=== PATIENT | male | born 1985 | race Hispanic/Latino ===

== ENCOUNTER 2019-06-02 15:06 | Emergency (ER) | payer MEDICAID, SELFPAY ==
[2019-06-02] MEDS ORDERED: Ketorolac Tromethamine 30 MG/ML VIAL ONE (15:59)
--- NOTE | 2019-06-02 16:30 | RAD ---
Left elbow 4 views HISTORY: Injury. FINDINGS: Lateral view demonstrates fluid distention of the joint capsule, as evidenced by elevation of the distal humeral fat pads. Radiocapitellar alignment is maintained. Radial head fracture not visible. No dislocation. IMPRESSION: Joint fluid may be related to an effusion or possibly hemarthrosis from acute injury. Giv en recent trauma, please consider immobilization and short-term radiographic follow-up. Fracture not visualized.
== END 2019-06-02 17:26 | disposition home or self-care (01) ==
LOC: ERS 15:06
DX: M25.522 Pain in left elbow (principal); X50.3XXA Overexertion from repetitive movements, initial encounter; Y99.0 Civilian activity done for income or pay
CPT/HCPCS: 29105; 96372; J1885

== ENCOUNTER 2023-01-12 02:09 | Emergency (ER) | payer SELFPAY ==
[2023-01-12 02:50] LABS: #Monocytes 0.3 thou/uL (0.11-0.59); #Neutrophils 2.3 thou/uL (1.40-6.50); %Lymphocytes 31.5 % (21.0-51.0); %Neutrophils 58.2 % (42.0-75.0); Hematocrit 41.7 % (42.0-52.0); Hemoglobin 13.7 g/dL (14.0-18.0); Mean Corpuscular HGB CONC 32.9 g/dL (32.0-36.0); Mean Corpuscular Hemoglobin 29.1 pg (27.0-31.0); Mean Corpuscular Volume 88.5 fl (78.0-98.0); Mean Platelet Volume 9.8 fL (7.4-10.4); Platelet Count 105 10x3/uL (130-400); RBC Distribution Width 12.5 % (11.5-14.5); Red Blood Cell (RBC) Count 4.71 mill/uL (4.70-6.10); White Blood Cell (WBC) Count 3.9 10x3/uL (4.8-10.8)
[2023-01-12 03:15] LABS: Troponin I Less than 0.010 ng/mL (< 0.028)
[2023-01-12 03:19] LABS: ALT (SGPT) 34 U/L (8-55); AST (SGOT) 73 U/L (5-34); Albumin 3.9 g/dL (3.5-5.0); Alkaline Phosphatase 149 U/L (40-110); Anion Gap 13 mmol/L (10-20); BUN (Urea Nitrogen) 6 mg/dL (8.9-20.6); Bilirubin, Total 2.6 mg/dL (0.2-1.2); Calc. Creatinine Clearance 0 mL/min (70-130); Calcium 9.3 mg/dL (7.8-10.44); Carbon Dioxide 27 mmol/L (22-29); Chloride 100 mmol/L (98-107); Estimated GFR 116; Globulin 3.7 g/dL (2.4-3.5); Glucose 101 mg/dL (70-105); Potassium 3.9 mmol/L (3.5-5.1); Protein, Total 7.6 g/dL (6.0-8.3); Sodium 136 mmol/L (136-145)
[2023-01-12] MEDS ORDERED: Acetaminophen 500 MG TAB ONE (03:35)
== END 2023-01-12 03:40 | disposition home or self-care (01) ==
LOC: ERS 02:09
DX: R07.9 Chest pain, unspecified (principal); H65.192 Other acute nonsuppurative otitis media, left ear; H73.92 Unspecified disorder of tympanic membrane, left ear
CPT/HCPCS: 36415; 71045; 80053; 84484; 85025; 93005

== ENCOUNTER 2023-05-31 04:29 | Emergency (ER) | payer SELFPAY ==
[2023-05-31] MEDS ORDERED: Ondansetron ODT 4 MG TAB ONE (04:45)
[2023-05-31] MEDS ORDERED: Ondansetron PF 4 MG/2 ML Vial ONE (05:50)
[2023-05-31 05:53] LABS: #Basophils 0.1 thou/uL (0.0-0.2); #Monocytes 0.3 thou/uL (0.11-0.59); #Neutrophils 2.2 thou/uL (1.40-6.50); %Basophils 1.9 % (0.0-1.0); %Eosinophils 0.8 % (0.0-10.0); %Lymphocytes 31.1 % (21.0-51.0); %Neutrophils 57.9 % (42.0-75.0); Hematocrit 43.8 % (42.0-52.0); Hemoglobin 14.4 g/dL (14.0-18.0); Mean Corpuscular HGB CONC 32.9 g/dL (32.0-36.0); Mean Corpuscular Hemoglobin 28.2 pg (27.0-31.0); Mean Corpuscular Volume 85.9 fl (78.0-98.0); Mean Platelet Volume 11.5 fL (7.4-10.4); RBC Distribution Width 12.8 % (11.5-14.5); White Blood Cell (WBC) Count 3.7 10x3/uL (4.8-10.8)
[2023-05-31 05:54] LABS: Platelet Count 78 10x3/uL (130-400)
[2023-05-31 06:15] LABS: ALT (SGPT) 52 U/L (8-55); AST (SGOT) 139 U/L (5-34); Albumin 4.1 g/dL (3.5-5.0); Alkaline Phosphatase 144 U/L (40-110); Anion Gap 15 mmol/L (10-20); BUN (Urea Nitrogen) 4 mg/dL (8.9-20.6); Bilirubin, Total 3.1 mg/dL (0.2-1.2); Calc. Creatinine Clearance 0 mL/min (70-130); Calcium 9.2 mg/dL (7.8-10.44); Carbon Dioxide 28 mmol/L (22-29); Chloride 98 mmol/L (98-107); Estimated GFR 114; Glucose 112 mg/dL (70-105); Magnesium 1.9 mg/dL (1.6-2.6); Potassium 3.2 mmol/L (3.5-5.1); Protein, Total 8.1 g/dL (6.0-8.3); Sodium 138 mmol/L (136-145)
[2023-05-31] MEDS ORDERED: Potassium Chloride 20 MEQ TAB ONE (07:12)
== END 2023-05-31 07:18 | disposition home or self-care (01) ==
LOC: ERS 04:29
DX: F10.129 Alcohol abuse with intoxication, unspecified (principal); E87.6 Hypokalemia; R74.8 Abnormal levels of other serum enzymes; R00.2 Palpitations
CPT/HCPCS: 80053; 83735; 84484; 85025; 93005; 96361; 96374; J2405; Q0162

== ENCOUNTER 2024-02-15 17:49 | Emergency (ER) | payer SELFPAY ==
[2024-02-15 18:37] LABS: #Basophils 0.07 10x3/uL (0.0-0.2); #Eosinophils Less than 0.03 10x3/uL (0.0-0.7); %Basophils 1.4 % (0.0-1.0); %Eosinophils 0.4 % (0.0-10.0); %Lymphocytes 21.9 % (21.0-51.0); %Monocytes 9.1 % (0.0-10.0); Hematocrit 37.7 % (42.0-52.0); Mean Corpuscular HGB CONC 31.8 g/dL (32.0-36.0); Mean Corpuscular Hemoglobin 24.1 pg (27.0-31.0); Mean Corpuscular Volume 75.7 fL (78.0-98.0); Mean Platelet Volume 10.4 fL (7.4-10.4); Platelet Count 72 10x3/uL (130-400); RBC Distribution Width 20.1 % (11.5-14.5); Red Blood Cell (RBC) Count 4.98 mill/uL (4.70-6.10)
[2024-02-15 18:56] LABS: ALT (SGPT) 42 U/L (8-55); AST (SGOT) 139 U/L (5-34); Albumin 3.2 g/dL (3.5-5.0); Alkaline Phosphatase 150 U/L (40-110); Anion Gap 15 mmol/L (10-20); BUN (Urea Nitrogen) 5 mg/dL (8.9-20.6); Bilirubin, Total 3.1 mg/dL (0.2-1.2); Calc. Creatinine Clearance 0 mL/min (70-130); Calcium 8.3 mg/dL (7.8-10.44); Carbon Dioxide 25 mmol/L (22-29); Chloride 101 mmol/L (98-107); Estimated GFR 116; Globulin 4.6 g/dL (2.4-3.5); Glucose 110 mg/dL (70-105); Lipase 41 U/L (8-78); Potassium 3.4 mmol/L (3.5-5.1); Protein, Total 7.8 g/dL (6.0-8.3); Sodium 138 mmol/L (136-145)
[2024-02-15 19:02] LABS: Troponin I Less than 0.010 ng/mL (< 0.028)
[2024-02-15] MEDS ORDERED: Milk Of Magnesia 30 ML UDCUP ONE (19:11)
[2024-02-15] MEDS ORDERED: Ondansetron PF 4 MG/2 ML Vial ONE (19:11)
[2024-02-15] MEDS ORDERED: Pantoprazole 40 MG VIAL ONE (19:14)
== END 2024-02-15 19:39 | disposition home or self-care (01) ==
LOC: ERS 17:49
DX: L08.9 Local infection of the skin and subcutaneous tissue, unspecified (principal); K29.70 Gastritis, unspecified, without bleeding; W22.8XXA Striking against or struck by other objects, initial encounter; Y93.H2 Activity, gardening and landscaping; Y92.096 Garden or yard of other non-institutional residence as the place of occurrence of the external cause
CPT/HCPCS: 36415; 71045; 80053; 83690; 84484; 85025; 93005; 96374; 96375; J2405; J2470

== ENCOUNTER 2024-03-12 16:32 | Inpatient (IN) | payer SELFPAY ==
[2024-03-12 18:17] VITALS: BMI 28.3
[2024-03-12] MEDS ORDERED: Ondansetron ODT 4 MG TAB PO PRN (19:08)
[2024-03-12] MEDS ORDERED: Electrolyte Replacement Protocol 1 EACH FS PRN (19:15)
[2024-03-12] MEDS: Acetaminophen 325 MG TAB PO PRN (19:47)
[2024-03-12] MEDS: Lorazepam 1 MG TAB PO PRN (19:47)
[2024-03-12] MEDS: Ondansetron PF 4 MG/2 ML Vial IVP PRN (19:47)
[2024-03-12] MEDS: Thiamine HCl 200 MG/2 ML VIAL SLOW IVP SCH (19:47)
[2024-03-12 19:48] LABS: #Basophils 0.03 10x3/uL (0.0-0.2); #Eosinophils Less than 0.03 10x3/uL (0.0-0.7); %Basophils 0.9 % (0.0-1.0); %Eosinophils 0.6 % (0.0-10.0); %Lymphocytes 33.5 % (21.0-51.0); %Monocytes 10.8 % (0.0-10.0); %Neutrophils 53.9 % (42.0-75.0); Hematocrit 27.5 % (42.0-52.0); Hemoglobin 9.1 g/dL (14.0-18.0); Mean Corpuscular HGB CONC 33.1 g/dL (32.0-36.0); Mean Corpuscular Hemoglobin 24.7 pg (27.0-31.0); Mean Corpuscular Volume 74.5 fL (78.0-98.0); Mean Platelet Volume 10.8 fL (7.4-10.4); Platelet Count 42 10x3/uL (130-400); RBC Distribution Width 18.6 % (11.5-14.5); Red Blood Cell (RBC) Count 3.69 mill/uL (4.70-6.10)
[2024-03-12 20:06] LABS: ALT (SGPT) 37 U/L (8-55); AST (SGOT) 135 U/L (5-34); Albumin 2.3 g/dL (3.5-5.0); Alkaline Phosphatase 128 U/L (40-110); Anion Gap 14 mmol/L (10-20); BUN (Urea Nitrogen) 12 mg/dL (8.9-20.6); Bilirubin, Total 4.2 mg/dL (0.2-1.2); Calc. Creatinine Clearance 163 mL/min (70-130); Calcium 7.6 mg/dL (7.8-10.44); Carbon Dioxide 28 mmol/L (22-29); Chloride 94 mmol/L (98-107); Estimated GFR 118; Globulin 3.4 g/dL (2.4-3.5); Glucose 99 mg/dL (70-105); Magnesium 1.5 mg/dL (1.6-2.6); Potassium 2.8 mmol/L (3.5-5.1); Protein, Total 5.7 g/dL (6.0-8.3); Sodium 133 mmol/L (136-145)
[2024-03-12] MEDS ORDERED: Potassium Chloride 20 MEQ TAB PO SCH (21:15)
[2024-03-12] MEDS: Potassium Chloride 20 MEQ in Premix 1 BAG IVPB SCH (21:17)
[2024-03-12] MEDS: Magnesium 2 GM/50 ML(in water) 2 GM in Premix 1 BAG IVPB SCH (21:20)
[2024-03-12] MEDS: Sodium Chloride 0.9% 1,000 ML IV SCH (21:20)
[2024-03-12] MEDS: Potassium Chloride 20 MEQ TAB PO SCH (21:23)
[2024-03-12 22:40] LABS: Amphetamine Not Detected (NotDetected); Barbiturates Screen Not Detected (NotDetected); Benzodiazepine Screen Detected (NotDetected); Cocaine Metabolite Screen Not Detected (NotDetected); Methadone Not Detected (NotDetected); Methamphetamine Not Detected (NotDetected); Opiate Screen Not Detected (NotDetected); Oxycodone Screen Not Detected (NotDetected); Phencyclidine (PCP) Not Detected (NotDetected); THC/Cannabinoid Screen Not Detected (NotDetected); Tricyclic Screen Not Detected (NotDetected)
[2024-03-13 04:39] LABS: INR-International Normal Ratio 1.3; Prothrombin Time 16.6 sec (12.0-14.7)
[2024-03-13 04:40] LABS: PTT 39.1 sec (22.9-36.1)
[2024-03-13 04:52] LABS: Anion Gap 10 mmol/L (10-20); BUN (Urea Nitrogen) 12 mg/dL (8.9-20.6); Calc. Creatinine Clearance 159 mL/min (70-130); Calcium 7.6 mg/dL (7.8-10.44); Carbon Dioxide 28 mmol/L (22-29); Chloride 98 mmol/L (98-107); Estimated GFR 117; Glucose 81 mg/dL (70-105); Iron 170 ug/dL (65-175); Iron Binding Capacity, Total 211 mcg/dL (261-462); Magnesium 2.2 mg/dL (1.6-2.6); Potassium 3.4 mmol/L (3.5-5.1); Sodium 133 mmol/L (136-145)
[2024-03-13 05:21] LABS: #Basophils 0.03 10x3/uL (0.0-0.2); #Eosinophils Less than 0.03 10x3/uL (0.0-0.7); %Eosinophils 0.6 % (0.0-10.0); %Lymphocytes 37.7 % (21.0-51.0); %Monocytes 9.7 % (0.0-10.0); %Neutrophils 50.4 % (42.0-75.0); Hematocrit 27.2 % (42.0-52.0); Hemoglobin 8.8 g/dL (14.0-18.0); Mean Corpuscular HGB CONC 32.4 g/dL (32.0-36.0); Mean Corpuscular Hemoglobin 24.1 pg (27.0-31.0); Mean Corpuscular Volume 74.5 fL (78.0-98.0); Mean Platelet Volume 10.7 fL (7.4-10.4); Platelet Count 43 10x3/uL (130-400); RBC Distribution Width 18.6 % (11.5-14.5); Red Blood Cell (RBC) Count 3.65 mill/uL (4.70-6.10)
[2024-03-13] MEDS: Potassium Chloride 20 MEQ TAB PO SCH (08:32)
[2024-03-13] MEDS: Multivit, Therapeutic 1 TAB PO SCH (08:32)
[2024-03-13] MEDS: Folic Acid 1 MG TAB PO SCH (08:32)
[2024-03-13] MEDS: Pantoprazole 40 MG VIAL IVP SCH (09:50)
[2024-03-13] MEDS: NS 0.9% w/ 20 MEQ KCL 1,000 ML/1,000 ML BAG IV SCH (09:50)
[2024-03-13] MEDS: cloNIDine 0.1mg/24 Hour PATCH TD SCH (09:50)
[2024-03-13] MEDS: Senokot S 8.6-50 MG TAB PO SCH ×2 (17:17→21:21)
[2024-03-13] MEDS: Polyethylene Glycol 3350 17 GM Packet PO PRN (17:17)
[2024-03-13] MEDS ORDERED: Lorazepam 1 MG TAB PO PRN (19:10)
[2024-03-13] MEDS: Lorazepam 2 MG/ML VIAL IM PRN (23:15)
[2024-03-14 05:30] LABS: #Basophils 0.06 10x3/uL (0.0-0.2); %Basophils 1.4 % (0.0-1.0); %Eosinophils 1.6 % (0.0-10.0); %Lymphocytes 34.6 % (21.0-51.0); %Monocytes 7.9 % (0.0-10.0); %Neutrophils 53.8 % (42.0-75.0); Hematocrit 26.9 % (42.0-52.0); Hemoglobin 8.7 g/dL (14.0-18.0); Mean Corpuscular HGB CONC 32.3 g/dL (32.0-36.0); Mean Corpuscular Hemoglobin 24.8 pg (27.0-31.0); Mean Corpuscular Volume 76.6 fL (78.0-98.0); Mean Platelet Volume 10.8 fL (7.4-10.4); Platelet Count 58 10x3/uL (130-400); RBC Distribution Width 18.9 % (11.5-14.5); Red Blood Cell (RBC) Count 3.51 mill/uL (4.70-6.10)
[2024-03-14 05:58] LABS: ALT (SGPT) 36 U/L (8-55); AST (SGOT) 129 U/L (5-34); Albumin 2.3 g/dL (3.5-5.0); Alkaline Phosphatase 130 U/L (40-110); Anion Gap 12 mmol/L (10-20); BUN (Urea Nitrogen) 11 mg/dL (8.9-20.6); Bilirubin, Total 5.4 mg/dL (0.2-1.2); Calc. Creatinine Clearance 114 mL/min (70-130); Carbon Dioxide 22 mmol/L (22-29); Chloride 103 mmol/L (98-107); Estimated GFR 91; Globulin 3.6 g/dL (2.4-3.5); Glucose 83 mg/dL (70-105); Protein, Total 5.9 g/dL (6.0-8.3); Sodium 133 mmol/L (136-145)
[2024-03-14] MEDS ORDERED: Electrolyte Replacement Protocol FS PRN (08:15)
[2024-03-14] MEDS: FLU (Fluarix Triv) TS24-25(6MOS UP)/PF 45 MCG/0.5 ML Syringe IM ONE (08:34)
[2024-03-14] MEDS: Lorazepam 1 MG TAB PO PRN (20:35)
[2024-03-14] MEDS: traZODone HCl 50 MG TAB PO SCH (23:42)
[2024-03-15 04:34] LABS: ALT (SGPT) 35 U/L (8-55); AST (SGOT) 112 U/L (5-34); Albumin 2.5 g/dL (3.5-5.0); Alkaline Phosphatase 141 U/L (40-110); Anion Gap 13 mmol/L (10-20); BUN (Urea Nitrogen) 10 mg/dL (8.9-20.6); Bilirubin, Total 4.6 mg/dL (0.2-1.2); Calc. Creatinine Clearance 134 mL/min (70-130); Calcium 7.9 mg/dL (7.8-10.44); Carbon Dioxide 19 mmol/L (22-29); Chloride 103 mmol/L (98-107); Estimated GFR 110; Globulin 3.6 g/dL (2.4-3.5); Glucose 92 mg/dL (70-105); Protein, Total 6.1 g/dL (6.0-8.3); Sodium 131 mmol/L (136-145)
[2024-03-15 04:46] LABS: #Basophils 0.05 10x3/uL (0.0-0.2); %Basophils 1.1 % (0.0-1.0); %Eosinophils 2.5 % (0.0-10.0); %Lymphocytes 33.6 % (21.0-51.0); %Monocytes 7.3 % (0.0-10.0); Hematocrit 28.5 % (42.0-52.0); Hemoglobin 9.1 g/dL (14.0-18.0); Mean Corpuscular HGB CONC 31.9 g/dL (32.0-36.0); Mean Corpuscular Hemoglobin 24.7 pg (27.0-31.0); Mean Corpuscular Volume 77.4 fL (78.0-98.0); Mean Platelet Volume 10.3 fL (7.4-10.4); Platelet Count 65 10x3/uL (130-400); Red Blood Cell (RBC) Count 3.68 mill/uL (4.70-6.10)
[2024-03-15] MEDS: Lorazepam 0.5 MG TAB PO PRN (20:55)
[2024-03-15] MEDS: Thiamine 100 MG TAB PO SCH (20:55)
[2024-03-16 04:44] LABS: #Basophils 0.05 10x3/uL (0.0-0.2); %Basophils 1.2 % (0.0-1.0); %Eosinophils 2.2 % (0.0-10.0); %Lymphocytes 32.3 % (21.0-51.0); %Monocytes 8.1 % (0.0-10.0); %Neutrophils 55.7 % (42.0-75.0); Hematocrit 26.8 % (42.0-52.0); Hemoglobin 8.5 g/dL (14.0-18.0); Mean Corpuscular HGB CONC 31.7 g/dL (32.0-36.0); Mean Corpuscular Hemoglobin 24.9 pg (27.0-31.0); Mean Corpuscular Volume 78.4 fL (78.0-98.0); Mean Platelet Volume 10.2 fL (7.4-10.4); Platelet Count 87 10x3/uL (130-400); RBC Distribution Width 19.4 % (11.5-14.5); Red Blood Cell (RBC) Count 3.42 mill/uL (4.70-6.10)
[2024-03-16 07:38] LABS: ALT (SGPT) 33 U/L (8-55); AST (SGOT) 91 U/L (5-34); Albumin 2.3 g/dL (3.5-5.0); Alkaline Phosphatase 132 U/L (40-110); Anion Gap 13 mmol/L (10-20); BUN (Urea Nitrogen) 8 mg/dL (8.9-20.6); Bilirubin, Total 3.7 mg/dL (0.2-1.2); Calc. Creatinine Clearance 142 mL/min (70-130); Calcium 7.9 mg/dL (7.8-10.44); Carbon Dioxide 20 mmol/L (22-29); Chloride 107 mmol/L (98-107); Estimated GFR 113; Globulin 3.5 g/dL (2.4-3.5); Glucose 106 mg/dL (70-105); Potassium 4.2 mmol/L (3.5-5.1); Protein, Total 5.8 g/dL (6.0-8.3); Sodium 136 mmol/L (136-145)
[2024-03-16 22:39] VITALS: BP 116/63; TEMP 98.2
== END 2024-03-16 18:10 | DRG 897 ==
LOC: 2SE 17:39 → OBSVTOIN 03-13 12:35
PROVIDERS: ADMIT Internal Medicine; ATTEND Family Medicine
DX: F10.139 Alcohol abuse with withdrawal, unspecified (principal); K92.1 Melena; E87.6 Hypokalemia; E83.42 Hypomagnesemia; D69.59 Other secondary thrombocytopenia; F41.9 Anxiety disorder, unspecified; E88.09 Other disorders of plasma-protein metabolism, not elsewhere classified; D50.9 Iron deficiency anemia, unspecified; Z88.5 Allergy status to narcotic agent; Z71.41 Alcohol abuse counseling and surveillance of alcoholic
CPT/HCPCS: 36415; 80048; 80053; 80306; 82274; 82728; 83540; 83550; 83735; 85025; 85610; 85730; 90656; 96374; 96375; 96376; G0378; J2060; J2405; J2470; J3411; J3475; J3480; J7030